=== PATIENT | male | born 1985 | race Caucasian/White ===

== ENCOUNTER 2023-08-18 19:11 | Emergency (ER) | payer SELFPAY, OTHER ==
[2023-08-18 19:12] VITALS: BP 164/92; PULSE 107; RESP 16; TEMP 36.1; O2SAT 100; BMI 32.6
--- NOTE | 2023-08-18 20:24 | EX.ED.UPPERE ---
HPI History of Present Illness Chief Complaint: Laceration Detail of Chief Complaint: Laceration on thenar eminence left hand due to chainsaw Informant: patient Occured/Mechanism Mechanism/Context: Yes blunt trauma Onset/Context/Timing Onset: Hours Context: Sudden Onset Timing: Continuous Quality of Pain: - (None) Location: Thenar eminence left hand Current Severity: Gone Maximum Severity: Mild Worsened by: Initial injury Relieved by: Not applicable Associated Symptoms Associated Symptoms: Negative for Parasthesia, Weakness or Loss of Funtion Narrative Narrative: Patient is a 38-year-old [id number] male presents with laceration to his left hand. He states chainsaw bucked. He went to stop the chain using his hand. He denies paresthesia, anesthesia or motor weakness. Tetanus was 20 years ago. He has no allergies to any medication. He is presently on no medication. Tetanus Immunization: >10 years Prior similar symptoms: No Recent Illness/Hospitalization: No PFSH PFSH Medical History no medical history no medical history Home Medications NK 08/18/23 [History Last Taken Unknown] Allergy/AdvReac Type Severity Reaction Status Date / Time No Known Allergies Allergy Verified 08/18/23 19:11 Social History (Updated 08/18/23 @ 20:[address] Vic Quiroz MD) household members: spouse Smoking Status: Never smoker ROS ROS ED Integumentary Reports other Details: Laceration thenar eminence and thumb Neurologic Neurologic: Denies paresthesias or weakness Hematologic/Lymphatic Hematologic/Lymphatic: Denies easy bleeding or easy bruising EXAM Physical Exam Const Vital Signs: 08/18/23 19:12 Temperature 96.9 F L Temperature Source Temporal Pulse Rate 107 H Respiratory Rate 16 Blood Pressure 164/92 H Blood Pressure Mean 116 Pulse Ox 100 Positive well nourished and well developed General Appearance ED: well developed and NAD HEENT normocephalic and atraumatic Eyes EOMs intact bilaterally Resp normal respiratory effort Cardio regular rate and regular rhythm Extremity full ROM; Negative for normal to inspection Extremity Narrative: Median, radial and ulnar function intact. Sensations intact. Patient has a jagged laceration thenar eminence of the left hand. There is also a small laceration of the thumb. Neuro oriented x3 and CN's II-XII intact bilaterally Sensorium / Orientation: alert Skin Skin Narrative: Laceration left hand thank you MDM MDM MDM Narrative Medical decision making narrative: Tetanus will need updated. Since there is no tenderness over the first metacarpal or proximal phalanx of the thumb imaging was not obtained. Will anesthetize the wound irrigate and explore for any foreign body. Procedures Other Procedures Procedure(s): Patient has a complex laceration with multiple para lacerations as well as loss of skin tissue. This is over the thenar eminence. The small laceration at the base of the thumb is 1 cm. The central laceration is 3 cm. There are 2 additional lacerations which are 2 cm in length. The wound was anesthetized with 1% lidocaine for local infiltration. Wound was irrigated with 500 cc of sterile water. A total of 12 stitches placed. There was 1 horizontal stitch placed. There was devitalized tissue that required removal. Discharge Plan Triage Chief Complaint: Laceration ED Provider: Vic Quiroz Dx/Rx/DC Orders Clinical Impression: Laceration of left palm, Laceration of left thumb Instructions: ED Laceration, Hand: All Closures Prescriptions: No Action NK Primary Care Provider: Care Physician,No Primary Referrals: Chan Noyola MD [Med Staff - Active Staff] - 10-14 Days suture removal Care Physician,No Primary [Primary Care Provider] - Activity Restrictions/Additional Instructions: 1. Keep wound clean and dry for the next 48 to 72 hours 2. Apply bacitracin ointment twice a day. Disposition Disposition: Home, Self Care
[2023-08-18] MEDS: Lidocaine 1% (20 ml mdv) 20 ML Vial INFILT (20:48)
[2023-08-18] MEDS: Diphth,Pertuss(Acell),Tet Vac 0.5 ML Vial IM (21:53)
== END 2023-08-18 21:56 | disposition home or self-care (01) ==
PROVIDERS: Emergency Provider Emergency Medicine; Visit Provider Emergency Medicine
DX: S61.412A Laceration without foreign body of left hand, initial encounter (principal); W29.3XXA Contact with powered garden and outdoor hand tools and machinery, initial encounter; Z23 Encounter for immunization; S61.012A Laceration without foreign body of left thumb without damage to nail, initial encounter
CPT/HCPCS: 12002; 90715; 99284